=== PATIENT | male | born 1960 | race African-American/Black ===

== ENCOUNTER → 2020-03-08 08:49 | Outpatient (CLI) | payer MEDICARE ==
[2014-09-07 12:26] VITALS: BMI 37.6
[~2020-03-08 08:49] MED LIST: BENICAR20 MG PO; COLACE100 MG PO; ELIQUIS2.5 MG PO; FISH OIL 1,0001 CA1 PO; HYDROCODONE-APA1 TAB PO; MOBIC7.5 MG PO; MS CONTIN30 MG PO; NEXIUM40 MG PO; SENOKOT-S TABLE1 TAB PO; ZYLOPRIM300 MG PO
== END | disposition home or self-care (01) ==
LOC: D.MRI 08:30
PROVIDERS: ATTEND Nurse Practitioner Family
DX: M54.16 Radiculopathy, lumbar region (principal)

== ENCOUNTER 2020-03-16 15:58 | Inpatient (IN) | payer MEDICARE ==
[~2020-03-16] VITALS: Ht 180.3 cm; Wt 143.2 kg
--- NOTE | ~2020-03-16 | OP ---
PATIENT NAME: PHUONG MAE MEDICAL RECORD: [id number] :64 [facility] AD[facility]ION DATE:04/05/20 SURGEON: MILAD HERNANDEZ MD DATE OF OPERATION: 04/05/2020 PREOPERATIVE DIAGNOSIS: Osteoarthritis, left hip. POSTOPERATIVE DIAGNOSIS: Osteoarthritis, left hip. PROCEDURE PERFORMED: Left total hip arthroplasty. INDICATIONS FOR THE PROCEDURE: Mr. Mae is a 59-year-old male with history of left hip pain and arthritis. He has been dealing with this for a while and now it is getting progressively worse. It is limiting his mobility. He has elected to proceed with surgery for left total hip arthroplasty. Risks, benefits, alternatives of surgery were discussed with the patient and consent was obtained. DESCRIPTION OF PROCEDURE: The patient was met in the holding area where his identity and confirmation of procedure was performed. Left lower extremity was marked. He was taken to the operating room where he was placed supine on the operating table. Anesthesia was administered. He was then positioned on the Reeder table. Extremities were positioned and padded appropriately. Left lower extremity was prepped and draped in a sterile fashion. The patient received preoperative antibiotics as well as TXA. A timeout was performed before initiating the case. On initiation of the case, anterior Soto-Bashir approach was utilized for exposure. We incised through the skin and subcutaneous tissues down to the tensor fascia. The tensor fascia was then split longitudinally and the interval between tensor and sartorius/rectus was utilized for deep exposure. We continued our dissection deep to identify the lateral circumflex vessels. These were tagged and cauterized. We dissected down to the anterior hip capsule, placed retractors around the superior and inferior femoral neck. Retractor was also placed over the anterior brim of the acetabulum. Anterior capsule was then excised. Retractors were repositioned around the femoral neck and our femoral neck cut was completed. The femoral head was removed with the corkscrew device. Retractors were repositioned around the acetabulum and tissue from around the acetabulum and the floor of the acetabulum was debrided. Femoral head was very damaged when we removed it and the superior portion of the head even collapsed and was in pieces. Once the acetabulum was completely debrided and exposed, began reaming starting with a size 43 and reaming up sequentially to a size 49. A size 50 mm cup was placed and malleted into position with a good fit. Alignment was confirmed under fluoroscopy. We then placed our central hole cap and the liner was tapped into place. We then turned our attention to the femur. Leg was externally rotated. Hook was placed under the proximal femur. Leg was then taken into extension and adduction. Retractors were placed at the medial calcar and over the greater trochanter. Tissue at the shoulder of the greater trochanter was then debrided as the proximal femur was elevated to allow for full exposure. Once we were pleased with our exposure, we began preparing the proximal femur using cookie cutter followed by the canal finder. We then started with the size 4 broach, going up sequentially to a size [address] a size 12 stem. This was trialed with a neutral head, neck, noted to have good fit and stability with near equal leg lengths. The hip was again dislocated and repositioned. Trial components were then removed and our final components were placed and tapped into position. A size 12 Microplasty Taperloc stem was placed along with a size 36 ceramic OPERATIVE REPORT [id number] PHUONG MAE standard head. The hip was again reduced and images were obtained showed good fit and alignment of the components with near equal leg lengths. The hip has good stability. The wound was irrigated thoroughly with saline. The joint solution was injected around the capsule and the proximal femur. The tensor fascia was then closed with a running Vicryl suture. Subcutaneous tissues were irrigated thoroughly with saline. The remainder of the joint solution was injected. A drain was placed and tissue was then closed over the drain. Subcutaneous tissue was closed with 2-0 Vicryl. The skin was closed with a running 3-0 Monocryl. Prineo and Dermabond dressing was then placed. This was covered with a sterile dressing and this completed our procedure. The patient was turned back over to anesthesia where he was awakened, extubated, and taken to recovery room in stable condition. POSTOPERATIVE PLAN: The patient is going to be admitted to the floor for routine postoperative care. He received 24 hours postop antibiotics. He will be started on DVT prophylaxis tomorrow. Physical therapy will be consulted to assist with mobilization, weightbearing as tolerated on the left lower extremity. PLAN: Home with home health. COMPLICATIONS: None. ANESTHESIA: General. ESTIMATED BLOOD LOSS: 200 mL. TRANSINT:[id number] Voice Confirmation ID: [id number] DOCUMENT ID: [id number] MILAD HERNANDEZ MD CC: [id number] DICTATION DATE: 04/05/20 1321 BIBLE READER: 04/05/20 215 ADM IN [facility] [address] [place] [id number]
[2020-03-22 11:33] LABS: ANION GAP 15.1 mmol/L (8-16); CALCIUM 10.3 mg/dL (8.5-10.1); CARBON DIOXIDE 21.9 mmol/L (21.0-32.0); CREATININE - SERUM 1.1 mg/dL (0.6-1.3)
[2020-03-22 12:12] LABS: APTT 29.6 SECONDS (22.8-39.4)
[2020-03-22 12:13] LABS: INR 0.98 (0.85-1.17)
[2020-03-22 12:15] LABS: BILIRUBIN NEGATIVE (NEGATIVE); GLUCOSE NEGATIVE (NEGATIVE); KETONE NEGATIVE (NEGATIVE); NITRITE NEGATIVE (NEGATIVE); UROBILINOGEN NORMAL (NORMAL)
[2020-03-22 13:14] LABS: BASOPHILS 0.3 % (0-2); EOSINOPHILS 3.3 % (0-7); HEMOGLOBIN 10.6 g/dL (13.5-17.5); IMMATURE GRANULOCYTES 0.3 % (0-5); LYMPHOCYTES 33.6 % (15-50); MCH 27.5 pg (26.0-34.0); MCHC 33.1 g/dL (31.0-37.0); MCV 82.9 fL (80.0-100.0); MEAN PLATELET VOLUME 10.1 fL (7.4-10.4); MONOCYTES 12.1 % (2-11); NEUTROPHILS 50.4 % (40-80); PLATELET COUNT 182 10x3/uL (130-400); RBC 3.86 10x6/uL (4.20-6.10); RDW 18.2 % (11.5-14.5); WBC 3.3 10x3/uL (4.8-10.8)
[2020-04-05] VITALS (11 sets, daily range): BP systolic 92–135; BP diastolic 55–97; Ht 180.3 cm; Wt 143.2 kg
[2020-04-05] MEDS ORDERED: METOLAZONE5 MG PO (07:11)
[2020-04-05] MEDS ORDERED: LEVEMIR IN100 UNITS/ SC (07:12)
[2020-04-05] MEDS ORDERED: MOBIC7.5 MG PO (07:14)
[2020-04-05] MEDS ORDERED: CYMBALTA20 MG PO (07:18)
--- NOTE | 2020-04-05 11:13 | NUR ---
1035-LEFT HIP/LEG WIPED WITH ALCOHOL SOAKED BLUE TOWELS PRIOR TO CHLORAPREP
--- NOTE | 2020-04-05 15:16 | NUR ---
RECIEVED PT FROM PACU. VS WNL, PT STABLE. SPOUSE IN ROOM. EDUCATED PT ON ISP, CL AND NEEDS, VERBALIZED UNDERSTANDING. BED LOW, CL IN REACH. WILL CONTINUE TO MONITOR.
--- NOTE | 2020-04-05 20:00 | NUR ---
RESTING IN BED, REPORTS SOME PAIN WITH MOVEMENT, AT BEDSIDE, SEE SHIFT ASSESSMENT, CALL LIGHT IN REACH
[2020-04-06 05:39] VITALS: BP 94/56
[2020-04-06 07:05] LABS: HEMOGLOBIN 9.9 g/dL (13.5-17.5); MCH 27.7 pg (26.0-34.0); MEAN PLATELET VOLUME 9.4 fL (7.4-10.4); RBC 3.57 10x6/uL (4.20-6.10); RDW 18.3 % (11.5-14.5); WBC 12.4 10x3/uL (4.8-10.8)
--- NOTE | 2020-04-06 07:30 | NUR ---
AWAKE AND ALERT. DENIES NEEDS. NO C/O AT THIS TIME.
[2020-04-06 07:58] VITALS: BP 92/71
--- NOTE | 2020-04-06 08:45 | NUR ---
ATE ALL OF BREAKFAST. TOOK AM MEDS WITHOUT DIFFICULTY. LUNGS ARE CLEAR BILATERALLY, NO COUGH NOTED. REPORTED USING IS INSTRUCTED. SKIN IS INTACT WITHOUT REDNESS EXCEPT INCISION TO LEFT HIP WHICH HAS A DRY INTACT DRESSING IN PLACE. SL TO LEFT WRIST IS PATENT WITHOUT REDNESS AT INSERTION SITE. SLOAN PATENT WITH CLEAR YELLOW URINE. DENIES NEEDS.
--- NOTE | 2020-04-06 09:30 | NUR ---
UP TO CHIAR AT BEDSIDE PER PT. NO C/O PAIN AT THIS TIME.
[2020-04-06 12:00] VITALS: BP 120/68
--- NOTE | 2020-04-06 12:30 | NUR ---
LUNCH SERVED IN ROOM. ATE WELL. AT BEDSIDE. DENIES NEEDS. BACK TO BED PER PT.
--- NOTE | 2020-04-06 14:16 | NUR ---
REQUESTED AND GIVEN ONE HYDROCODONE PO FOR C/O LEFT HIP PAIN LEVEL 9. WILL MONITOR.
[2020-04-06 16:40] VITALS: BP 105/66
--- NOTE | 2020-04-06 18:08 | NUR ---
ATE ALL OF SUPPER TRAY. DENIES NEEDS. NO CHANGES NOTED. VOIDED 300CC CLEAR YELLOW URINE.
[2020-04-06 20:00] VITALS: BP 94/64
--- NOTE | 2020-04-06 20:00 | NUR ---
ALERT RESTING IN BED REQUESTING PAIN MEDICATION, SEE SHIFT ASSESSEMNT, BP LOW INFORMED TO LOW TO GIVE PAIN MEDS AT THIS TIME WILL RECHECK
[2020-04-06 22:30] VITALS: BP 106/53
[2020-04-07 04:00] VITALS: BP 114/79
[2020-04-07 06:41] LABS: HEMATOCRIT 26.8 % (42.0-54.0); HEMOGLOBIN 8.8 g/dL (13.5-17.5); MCH 27.8 pg (26.0-34.0); MCHC 32.8 g/dL (31.0-37.0); MCV 84.8 fL (80.0-100.0); MEAN PLATELET VOLUME 9.4 fL (7.4-10.4); RBC 3.16 10x6/uL (4.20-6.10); RDW 18.4 % (11.5-14.5)
--- NOTE | 2020-04-07 07:30 | NUR ---
AWAKE AND ALERT. IN ROOM. DENIES NEEDS.
[2020-04-07 07:31] VITALS: BP 123/80
--- NOTE | 2020-04-07 08:45 | NUR ---
AWAKE AND ALERT. ORIENTED X3. REQUESTED AND GIVEN ONE HYDROCODONE PO FOR C/O LEFT HIP PAIN LEVEL 8. WILL MONITOR. FSBS 189. GIVEN SCHEDULED LANTUS 20 UNITS. LUNGS ARE CLEAR BILATERALLY, NO COUGH NOTED. SKIN IS INTACT WITHOUT REDNESS EXCEPT INCISION TO LEFT HIP WHICH HAS A DRY INTACT DRESSING IN PLACE. SL TO LEFT WRIST PATENT WITHOUT REDNESS AT INSERTION SITE. DENIES FURTHER NEEDS.
[2020-04-07 11:41] VITALS: BP 104/55
--- NOTE | 2020-04-07 12:30 | NUR ---
LUNCH SERVED IN ROOM. DR. HERNANDEZ HERE. DRESSING CHANGED TO LEFT HIP. REQUESTED AND GIVEN ONE HYDROCODONE FOR C/O LEFT HIP PAIN LEVEL 8. WILL MONITOR.
--- NOTE | 2020-04-07 14:28 | MORECARE ---
CASE MANAGEMENT DISCHARGE SUMMARY PATIENT: PHUONG MAE UNIT: [id number] ADM DATE: 04/05/20 AGE: 59 : 64 SEX: M ROOM/BED: D.1213 AUTHOR: PETER WAYNE PHYSICIAN: REFERRING PHYSICIAN: MILAD HERNANDEZ MD DATE OF SERVICE: 04/07/20 Discharge Plan Patient Name: PHUONG MAE [facility] [facility] 1960 Planned Disposition: Anticipated Discharge Date: Discharge Date: Expected LOS: Initial Reviewer: [email or web address] Initial Review Date: 04/05/2020 Generated: 04/07/20 3:27 pm Comments DCP- Discharge Planning Updated by [email or web address]: Cathy Quiroz on 04/07/20 1:[address] Patient Name: PHUONG MAE Admission Status: Urgent Accout number: [id number] Admission Date: 04-05-2020 : 1960 Admission Diagnosis: Attending: CARYN Current LOS: 2 Anticipated DC Date: Planned Disposition: Primary Insurance: MEDICARE A & B Discharge Planning Comments: CM met with patient to complete initial dc planning assessment. CM educated patient on the CM role and verbal consent given by patient to complete assessment. Patient lives at home with family. Patient is independent. At discharge patient plans to return home and feels this is a safe discharge. CM discussed availability of home health, rehab services, and medical equipment. Patient will have family to transport home. Patient denied known discharge needs at this time. CM will continue to follow and will assist as NEEDED. Patient states does not need HH. Product Safety Technical Assistant: Cathy Quiroz Patient Name: PHUONG MAE Page [phone] at 1428 All edits/amendments must be made on the electronic document DICTATION DATE: 04/07/201426 PIN INSERTER: NICOL 04/07/201426 RPT#: [id number] DC DATE: STATUS: ADM IN [facility] [address] [place] [address] END OF REPORT
--- NOTE | 2020-04-07 14:35 | NUR ---
DISCHARGED TO HOME AMBULATORY WITH . DISCHARGE INSTRUCTIONS GIVEN BOTH VERBALLY AND WRITTEN. ALL QUESTIONS ANSWERED. PATIENT AND VERBALIZED UNDERSTANDING OF SAME. ABLE TO VERBALIZE WHEN TO RETURN TO CLINIC AND HOW TO DO DRESSING CHANGES. SL TO LEFT HAND D/C WITH CATHETER INTACT. ALL BELONGINGS WITH PATIENT.
--- NOTE | 2020-04-07 16:37 | MORECARE ---
CASE MANAGEMENT DISCHARGE SUMMARY PATIENT: PHUONG MAE UNIT: [id number] ADM DATE: 04/05/20 AGE: 59 : 64 SEX: M ROOM/BED: D.1213 AUTHOR: PETER WAYNE PHYSICIAN: REFERRING PHYSICIAN: MILAD HERNANDEZ MD DATE OF SERVICE: 04/07/20 Discharge Plan Patient Name: PHUONG MAE Facility: [facility]:[place] : 1960 Planned Disposition: Anticipated Discharge Date: Discharge Date: 04/07/2020 Expected LOS: Initial Reviewer: [email or web address] Initial Review Date: 04/05/2020 Generated: 04/07/20 5:36 pm Comments DCP- Discharge Planning Updated by [email or web address]: Cathy Quiroz on 04/07/20 3:[address] Patient Name: PHUONG MAE Admission Status: Urgent Accout number: [id number] Admission Date: 04-05-2020 : 1960 Admission Diagnosis: Attending: CARYN Current LOS: 2 Anticipated DC Date: Planned Disposition: Primary Insurance: MEDICARE A & B Discharge Planning Comments: CM met with patient to complete initial dc planning assessment. CM educated patient on the CM role and verbal consent given by patient to complete assessment. Patient lives at home with family. Patient is independent. At discharge patient plans to return home and feels this is a safe discharge. CM discussed availability of home health, rehab services, and medical equipment. Patient will have family to transport home. Patient denied known discharge needs at this time. CM will continue to follow and will assist as NEEDED. Patient states does not need HH. Account Associate: Cathy Quiroz Appended by Cathy Quiroz on 04/07/2020 16:34 CDT: I CALLED AND LEFT PATIENT A MSG TO CALL ME BACK. FROM LOOKING AT THE ORDERS THE MD WANTS HIM TO HAVE HH. I WILL ENCOURAGE THE PATIENT TO CONSENT TO HH. WAITING FOR CALL BACK FROM PATIENT. I WILL TRY CALLING HIM AGAIN FRIDAY IF I DON'T GET A CALL BACK BY THE END OF THE DAY. Last DP export: 04/07/20 1:28 p Patient Name: PHUONG MAE Page 64054 at 1637 All edits/amendments must be made on the electronic document DICTATION DATE: 04/07/201635 CITY MAINTENANCE MANAGER: NICOL 04/07/20 1636 RPT#: [id number] DC DATE:04/07/20 STATUS: DIS IN [facility] [address] [place] [address] END OF REPORT
--- NOTE | 2020-04-07 18:09 | MORECARE ---
CASE MANAGEMENT DISCHARGE SUMMARY PATIENT: PHUONG MAE UNIT: [id number] ADM DATE: 04/05/20 AGE: 59 : 64 SEX: M ROOM/BED: D.1213 AUTHOR: ROSANA,DOC PHYSICIAN: REFERRING PHYSICIAN: MILAD HERNANDEZ MD DATE OF SERVICE: 04/07/20 Discharge Plan Patient Name: PHUONG MAE Facility: [facility]:[place] : 1960 Planned Disposition: Anticipated Discharge Date: Discharge Date: 04/07/2020 Expected LOS: Initial Reviewer: [email or web address] Initial Review Date: 04/05/2020 Generated: 04/07/20 7:08 pm Comments DCP- Discharge Planning Updated by [email or web address]: Cathy Quiroz on 04/07/20 3:[address] Patient Name: PHUONG MAE Admission Status: Urgent Accout number: [id number] Admission Date: 04-05-2020 : 1960 Admission Diagnosis: Attending: CARYN Current LOS: 2 Anticipated DC Date: Planned Disposition: Primary Insurance: MEDICARE A & B Discharge Planning Comments: CM met with patient to complete initial dc planning assessment. CM educated patient on the CM role and verbal consent given by patient to complete assessment. Patient lives at home with family. Patient is independent. At discharge patient plans to return home and feels this is a safe discharge. CM discussed availability of home health, rehab services, and medical equipment. Patient will have family to transport home. Patient denied known discharge needs at this time. CM will continue to follow and will assist as NEEDED. Patient states does not need HH. Cook Helper Vegetable: Cathy Quiroz Appended by Cathy Quiroz on 04/07/2020 16:34 CDT: I CALLED AND LEFT PATIENT A MSG TO CALL ME BACK. FROM LOOKING AT THE ORDERS THE MD WANTS HIM TO HAVE HH. I WILL ENCOURAGE THE PATIENT TO CONSENT TO HH. WAITING FOR CALL BACK FROM PATIENT. I WILL TRY CALLING HIM AGAIN FRIDAY IF I DON'T GET A CALL BACK BY THE END OF THE DAY. External Providers [facility] Next Contact Date: Service Request Date: Service Type: Resolution: Reviewer: Comments: Last DP export: 04/07/20 3:37 p Patient Name: PHUONG MAE Page 16202 at 1809 All edits/amendments must be made on the electronic document DICTATION DATE: 04/07/201808 FRONT END JAVA DEVELOPER: NICOL 04/07/201808 RPT#: [id number] DC DATE:04/07/20 STATUS: DIS IN [facility] [address] [place] [address] END OF REPORT
== END 2020-04-07 14:46 | disposition home or self-care (01) | DRG 470 ==
LOC: D.SDCHOLD 03-22 10:00 → D.M3 04-05 06:28 → D.SDCHOLD 04-05 06:28 → D.M3 04-05 13:48
PROVIDERS: ADMIT Orthopaedic Surgery; ATTEND Orthopaedic Surgery
PROC: 0SRB0JZ Replacement of Left Hip Joint with Synthetic Substitute, Open Approach (ICD-10-PCS; principal; 2020-04-05 08:45)
DX: M16.12 Unilateral primary osteoarthritis, left hip (principal); E11.9 Type 2 diabetes mellitus without complications; I10 Essential (primary) hypertension; F17.200 Nicotine dependence, unspecified, uncomplicated

== ENCOUNTER → 2020-04-28 18:15 | Outpatient (CLI) | payer MEDICARE ==
[2020-04-05 15:37] VITALS: BMI 44.0
[~2020-04-28 18:15] MED LIST changes: +CYMBALTA20 MG PO; +ELIQUIS2.5 MG; +LEVEMIR IN100 UNITS/ SC; +METOLAZONE5 MG PO
[2020-04-28 19:12] LABS: BASOPHILS 0.2 % (0-2); EOSINOPHILS 2.3 % (0-7); HEMATOCRIT 30.5 % (42.0-54.0); HEMOGLOBIN 9.8 g/dL (13.5-17.5); IMMATURE GRANULOCYTES 0.3 % (0-5); LYMPHOCYTES 24.5 % (15-50); MCH 27.6 pg (26.0-34.0); MCHC 32.1 g/dL (31.0-37.0); MCV 85.9 fL (80.0-100.0); MEAN PLATELET VOLUME 9.2 fL (7.4-10.4); MONOCYTES 7.9 % (2-11); NEUTROPHILS 64.8 % (40-80); RBC 3.55 10x6/uL (4.20-6.10); RDW 17.5 % (11.5-14.5); WBC 9.8 10x3/uL (4.8-10.8)
[2020-04-28 19:33] LABS: PLATELET COUNT 591 10x3/uL (130-400)
[2020-04-28 20:33] LABS: ERYTHROCYTE SEDIMENTATION RATE 96 mm/hr (0-20)
== END | disposition home or self-care (01) ==
LOC: D.LABREF 18:15
PROVIDERS: ATTEND Orthopaedic Surgery
DX: M25.552 Pain in left hip (principal)

== ENCOUNTER 2020-05-03 06:44 | Inpatient (IN) | payer MEDICARE ==
[~2020-05-03] VITALS: Ht 180.3 cm; Wt 136.1 kg
[2020-05-03] VITALS (7 sets, daily range): BP systolic 110–134; BP diastolic 58–88; BMI 41.9
--- NOTE | ~2020-05-03 | HEMODYNAMI ---
PATIENT:PHUONG MAE MEDICAL RECORD: [id number] : 64 LOCATION:D.[facility] D.2227 ADMISSION DATE: 05/03/20 Generatedon:05/12/20208:43 Patient name: PHUONG MAE Patient #: [id number] SSN: : 1960 Date of study: 05/12/2020 Page: Of Hemodynamic Procedure Report Patient Data Patient Demographics Procedure consent was obtained First Name: PHUONG Gender: Male Last Name: TU : 1960 Patient #: [id number] Age: 59 year(s) Race: Black Additional ID: [id number] Contact details Address: [address] [place] [address] State: [place] City: [place] Zip code: [address] Past Medical History Allergies Allergen Reaction Date Comments Reported Other allergy 05/12/2020 ibuprofen Admission Admission Data Admission Date: 05/03/2020 Admission Time: 17:33 Room #: D.2227 Procedure Procedure Types Cath Procedure Peripheral Cath Diagnostic Procedure PICC PICC Line Placement Procedure Description Procedure Date Procedure Date: 05/12/2020 Procedure Start Time: 8:24 Procedure End Time: 8:43 Procedure Staff Name Function Thuan Huang MD Performing Physician HERNANDEZ WOODY RT Monitor Enrrique Pelayo RT Scrub Keon BAHENA RN Nurse Procedure Data Cath Procedure Fluoroscopy Diagnostic fluoroscopy Total fluoroscopy Time: 0.8 time: 0.8 min min Hemodynamics Rest Pre Cath Intra NCS Post Cath Procedure Log Time Note 8:03:36 Keon BAHENA RN sent for patient. Start room use. 8:03:39 Time tracking: Regular hours (M-F 7:00 - 5:00) 8:03:47 Patient received from Med/Surg to IR Alert and oriented. Tansferred to table in Supine position. 8:03:54 Signed procedure consent form obtained from patient. 8:03:55 Warm blankets applied, and kayden hugger turned on for patient comfort. 8:03:56 Correct patient and procedure confirmed by team. 8:03:58 8:04:03 H&P Date Dictated: 05/12/2020 Within 30 days and on chart.. 8:04:05 Pre-procedure instructions explained to patient. 8:04:06 Pre-op teaching completed and patient verbalized understanding. 8:04:23 Patient allergic to Other allergyibuprofen 8:06:55 8:07:05 PowerPICC 5Fr double lumen catheter opened to sterile field. 8:12:30 Use device set IR Diagnostic 8:12:31 Bag Decanter (2002S) opened to sterile field. 8:12:32 Sterile Angiographic Pack opened to sterile field. 8:12:32 Tegaderm 4 x 4 ([id number]) opened to sterile field. 8:12:51 Left Arm area was prepped with chlora-prep and draped in sterile fashion 8:20:49 --------ALL STOP TIME OUT------ 8:20:50 Final Timeout: patient, procedure, and site verified with staff and physician. All members of the team are in agreement. 8:21:02 Sharps counted by scrub and verified by R.N. 8:22:30 Procedure started. 8:22:30 Full Disclosure recording started 8:24:53 Local anesthetic to left subclavian vein with Lidocaine 1% by Thuan Huang MD.INITIAL ACCESS ONLY 8:24:56 Venous access obtained using ultrasound guidance. 8:35:18 NITINOL .014 300cm wire ([id number]) opened to sterile field. 8:41:46 PICC line was trimmed to 53cm and advanced to the superior vena cava.Position verified under fluoroscopy. 8:41:53 Procedure ended.(Physican Out) 8:42:12 Fluoroscopy time 00.80 minutes. 8:42:14 Dose Area Product 6 mGy/cm. 8:42:16 Sharps counted by scrub and verified by R.N. 8:42:40 Post left brachial artery:stable, clean and dry 8:42:44 Procedure and supply charges have been captured, reviewed, submitted and are correct. 8:43:17 Procedure ended. 8:43:17 Full Disclosure recording stopped Device Usage Item Name Manufacture Quantity Catalog Hospital Part Current Minimal Lot# / Number Charge Number Stock Stock Serial# Code PowerPIC Bard 1 [id number] [id number] 5 5Fr double lumen catheter Bag Decanter Microtek 1 2001S [id number] [id number] [id number] 5 (2001S) Medical Inc[employer] Sterile Cardinal 1 [id number] 5 Angiographic Health Pack Tegaderm 4 x 3M 1 1626W 029113 [id number] [id number] 5 4 (1626W) NITINOL .014 Medtronic 1 [id number] 5 300cm wire ([id number]) Signature Audit Yaphank Stage Time Signature Unsigned Intra-Procedure 05/12/2020 HERNANDEZ WOODY RT 8:43:34 AM (R) [facility] [address] [place] [address]
[2020-05-03 07:20] LABS: HEMATOCRIT 30.4 % (42.0-54.0); HEMOGLOBIN 9.8 g/dL (13.5-17.5); MCH 27.5 pg (26.0-34.0); MCHC 32.2 g/dL (31.0-37.0); MCV 85.2 fL (80.0-100.0); MEAN PLATELET VOLUME 8.5 fL (7.4-10.4); RBC 3.57 10x6/uL (4.20-6.10); RDW 16.8 % (11.5-14.5); WBC 5.9 10x3/uL (4.8-10.8)
[2020-05-03 07:29] LABS: ALBUMIN 3.1 g/dL (3.4-5.0); ANION GAP 14.3 mmol/L (8-16); APTT 31.6 SECONDS (22.8-39.4); BILIRUBIN - TOTAL 0.25 mg/dL (0.2-1.3); CALCIUM 9.5 mg/dL (8.5-10.1); CARBON DIOXIDE 23.8 mmol/L (21.0-32.0); CREATININE - SERUM 1.2 mg/dL (0.6-1.3); INR 1.06 (0.85-1.17); POTASSIUM - SERUM 4.1 mmol/L (3.5-5.1); PROTEIN - SERUM 8.8 g/dL (6.4-8.2); PROTIME 13.8 SECONDS (11.6-15.0)
--- NOTE | 2020-05-03 13:23 | NUR ---
REPORT RECIEVED FROM RECOVERY ROOM NURSE AT THIS TIME.
--- NOTE | 2020-05-03 14:12 | NUR ---
PATIENT TO UNIT VIA BED, AT BEDSIDE. REQUESTS PAIN MEDICATION. BED LOW POSITION, CALL LIGHT IN REACH, URINAL IN REACH. POST OP VITAL SIGNS EVERY 15 MINUTES PER PROTOCOL.
[2020-05-04 04:00] VITALS: BP 152/100
--- NOTE | 2020-05-04 05:01 | NUR ---
I have reviewed this patient and I concur with the Shift Assessment completed by the Licensed Practical Nurse today this shift.
[2020-05-04 06:59] LABS: BASOPHILS 0.3 % (0-2); EOSINOPHILS 2.8 % (0-7); HEMATOCRIT 25.9 % (42.0-54.0); HEMOGLOBIN 8.5 g/dL (13.5-17.5); IMMATURE GRANULOCYTES 0.4 % (0-5); LYMPHOCYTES 28.5 % (15-50); MCHC 32.8 g/dL (31.0-37.0); MCV 85.2 fL (80.0-100.0); MEAN PLATELET VOLUME 8.9 fL (7.4-10.4); PLATELET COUNT 448 10x3/uL (130-400); RBC 3.04 10x6/uL (4.20-6.10); RDW 16.9 % (11.5-14.5); WBC 6.7 10x3/uL (4.8-10.8)
--- NOTE | 2020-05-04 07:15 | NUR ---
RECEIVED BEDSIDE REPORT. PT SITTING UP IN BED, A&O X4. DENIES PAIN. PIV IN RIGHT HAND, PATENT AND INFUSING, NO REDNESS OR SWELLING. WOUND VAC TO LEFT HIP, PATENT AND DRAINING. PT ABLE TO AMBULATE WITH ONE PERSON ASSIST, USES URINAL AT BEDSIDE. EDUCATED PT ON CL AND NEEDS. BED LOW, RAILS X2. CL IN REACH. WILL CONTINUE TO MONITOR.
[2020-05-04 07:43] LABS: ALBUMIN 2.6 g/dL (3.4-5.0); ALKALINE PHOSPHATASE 188 U/L (30-120); ALT (SGPT) 17 U/L (10-68); BILIRUBIN - TOTAL 0.26 mg/dL (0.2-1.3); CALC OSMOLALITY 271 mosm/kg (275-300); CALCIUM 8.3 mg/dL (8.5-10.1); CARBON DIOXIDE 23.6 mmol/L (21.0-32.0); CHLORIDE - SERUM 102 mmol/L (98-107); GLUCOSE 123 mg/dL (74-106); MAGNESIUM - SERUM 1.6 mg/dL (1.8-2.4); POTASSIUM - SERUM 4.2 mmol/L (3.5-5.1); PROTEIN - SERUM 6.8 g/dL (6.4-8.2); SODIUM 135 mmol/L (136-145); UREA NITROGEN 15 mg/dL (7-18)
[2020-05-04 07:46] LABS: CREATININE - SERUM 0.8 mg/dL (0.6-1.3); eGFR NON AFRICAN AMERICAN > 90 mL/min (90-120)
[2020-05-04 08:00] VITALS: BP 135/95
[2020-05-04 09:48] VITALS: BP 135/95
--- NOTE | 2020-05-04 10:30 | NUR ---
PT C/O PAIN 04/03, PROVIDED MEDS PER ORDER. EMPTIED URINAL, 200 ML URINE CLR AND YELLOW, ODORLESS. WILL CONTINUE TO MONITOR.
[2020-05-04 12:00] VITALS: BP 138/85
[2020-05-04 13:57] VITALS: Ht 180.3 cm; Wt 136.1 kg
--- NOTE | 2020-05-04 14:30 | NUR ---
PT C/O PAIN 04/03, PROVIDED MEDS PER ORDER. WILL CONTINUE TO MONITOR.
[2020-05-04 17:14] VITALS: BP 124/92
--- NOTE | 2020-05-04 19:30 | NUR ---
PT SITTING UP IN BED WITHOUT DISTRESS, AOX4. IV RIGHT HAND INFUSING NS @ KVO. LEFT HIP WOUND VAC IN PLACE. REQUESTED AND GIVEN NORCO FOR PAIN. DENIES OTHER NEEDS AT THIS TIME. CL IN REACH, WILL CTM
[2020-05-04 20:00] VITALS: BP 136/83
[2020-05-05] VITALS: BP 152/99
[2020-05-05 04:00] VITALS: BP 140/93
[2020-05-05 05:11] LABS: BASOPHILS 0.3 % (0-2); EOSINOPHILS 4.1 % (0-7); HEMATOCRIT 28.5 % (42.0-54.0); HEMOGLOBIN 9.4 g/dL (13.5-17.5); IMMATURE GRANULOCYTES 0.4 % (0-5); LYMPHOCYTES 27.9 % (15-50); MCH 27.8 pg (26.0-34.0); MCV 84.3 fL (80.0-100.0); MEAN PLATELET VOLUME 9.4 fL (7.4-10.4); MONOCYTES 9.3 % (2-11); PLATELET COUNT 371 10x3/uL (130-400); RBC 3.38 10x6/uL (4.20-6.10); RDW 16.8 % (11.5-14.5); WBC 7.5 10x3/uL (4.8-10.8)
[2020-05-05 05:16] LABS: ALBUMIN 2.8 g/dL (3.4-5.0); ALKALINE PHOSPHATASE 208 U/L (30-120); ALT (SGPT) 15 U/L (10-68); BILIRUBIN - TOTAL 0.39 mg/dL (0.2-1.3); C-REACTIVE PROTEIN 5.5 mg/dL (0.0-0.9); CALC OSMOLALITY 269 mosm/kg (275-300); CALCIUM 9.4 mg/dL (8.5-10.1); CARBON DIOXIDE 23.9 mmol/L (21.0-32.0); CHLORIDE - SERUM 101 mmol/L (98-107); CREATININE - SERUM 0.9 mg/dL (0.6-1.3); GLUCOSE 119 mg/dL (74-106); MAGNESIUM - SERUM 1.6 mg/dL (1.8-2.4); POTASSIUM - SERUM 4.6 mmol/L (3.5-5.1); PROTEIN - SERUM 8.2 g/dL (6.4-8.2); SODIUM 135 mmol/L (136-145); UREA NITROGEN 11 mg/dL (7-18); eGFR NON AFRICAN AMERICAN > 90 mL/min (90-120)
--- NOTE | 2020-05-05 08:21 | NUR ---
The patient is awake and in good spirits, wound vac dressing intact. Patient aware of procedures today.
[2020-05-05 09:24] VITALS: BP 134/99
--- NOTE | 2020-05-05 12:24 | NUR ---
1224 TRANSPORTED TO OR VIA BED WITH OR STAFF TO ASSIST.
[2020-05-05 15:07] VITALS: BP 122/89
--- NOTE | 2020-05-05 15:15 | NUR ---
The patient is back in his room from surgery. The procedure was to open his wound and replace his wound vac, the patient will schedule for a closure on Friday.
--- NOTE | 2020-05-05 15:24 | NUR ---
The patient requests a pain medication, he says he has a h/a 06/03. Will continue to monitor.
--- NOTE | 2020-05-05 15:24 | NUR ---
Provided the patient Doug martinez, see MAR. daughter and spouse at the bedside.
--- NOTE | 2020-05-05 16:00 | NUR ---
BP 132/910, R 20, T 98, O2SAT R/A 98
--- NOTE | 2020-05-05 16:30 | NUR ---
BP 136/73, P 79, O2SAT R/A 99, R 18
--- NOTE | 2020-05-05 20:00 | NUR ---
PATIENT RESTING IN BED WATCHING TV. NO S/S OF ACUTE DISTRESS. NO C/O AT THIS TIME. PATIENT HAS RIGHT HAND IV, NORMAL SALINE @ 50 ML/HR. IV IS PATENT WITHOUT REDNESS, SWELLING, OR TENDERNESS. PATEINT HAS WOUND VAC TO THE LEFT HIP, DRESSING C/D/I. PATIENT USES URINAL TO USE THE BATHROOM. CALL LIGHT WITHIN REACH. WILL CONTINUE TO MONITOR.
[2020-05-05 20:10] VITALS: BP 118/78
[2020-05-06] VITALS: BP 113/82
--- NOTE | 2020-05-06 02:25 | NUR ---
I have reviewed this patient and I concur with the Shift Assessment completed by the Licensed Practical Nurse today this shift.
--- NOTE | 2020-05-06 03:40 | NUR ---
RE-SITED IV TO RIGHT WRIST USING 22 GUAGE CATHETER IN ONE STICK. IV FLUIDS RE-STARTED.
[2020-05-06 04:00] VITALS: BP 135/77
--- NOTE | 2020-05-06 04:15 | NUR ---
IV IN RIGHT HAND INFILTRATED. IV TAKEN OUT AND CATHETER TIP IS INTACT. NEW IV PLACED IN RIGHT HAND. IV IS PATENT WITHOUT REDNESS, SWELLING, OR TENDERNESS. CALL LIGHT WITHIN REACH. WILL CONTINUE TO MONITOR.
[2020-05-06 06:35] LABS: BASOPHILS 0.2 % (0-2); EOSINOPHILS 2.3 % (0-7); HEMOGLOBIN 9.3 g/dL (13.5-17.5); IMMATURE GRANULOCYTES 0.2 % (0-5); LYMPHOCYTES 26.6 % (15-50); MCH 26.9 pg (26.0-34.0); MCHC 32.1 g/dL (31.0-37.0); MCV 83.8 fL (80.0-100.0); MEAN PLATELET VOLUME 9.4 fL (7.4-10.4); MONOCYTES 8.7 % (2-11); RBC 3.46 10x6/uL (4.20-6.10); RDW 16.7 % (11.5-14.5); WBC 8.2 10x3/uL (4.8-10.8)
[2020-05-06 06:41] LABS: PLATELET COUNT 453 10x3/uL (130-400)
[2020-05-06 07:16] LABS: ALBUMIN 2.6 g/dL (3.4-5.0); ALKALINE PHOSPHATASE 197 U/L (30-120); ALT (SGPT) 14 U/L (10-68); BILIRUBIN - TOTAL 0.32 mg/dL (0.2-1.3); CALC OSMOLALITY 268 mosm/kg (275-300); CALCIUM 9.2 mg/dL (8.5-10.1); CARBON DIOXIDE 22.9 mmol/L (21.0-32.0); CHLORIDE - SERUM 97 mmol/L (98-107); CREATININE - SERUM 0.9 mg/dL (0.6-1.3); GLUCOSE 152 mg/dL (74-106); MAGNESIUM - SERUM 1.5 mg/dL (1.8-2.4); PROTEIN - SERUM 8.1 g/dL (6.4-8.2); SODIUM 133 mmol/L (136-145); UREA NITROGEN 13 mg/dL (7-18); eGFR NON AFRICAN AMERICAN > 90 mL/min (90-120)
[2020-05-06 07:19] LABS: POTASSIUM - SERUM 3.9 mmol/L (3.5-5.1)
[2020-05-06 09:54] VITALS: BP 132/77
--- NOTE | 2020-05-06 10:57 | NUR ---
PT ALERT X 4. BREATH SOUNDS CLEAR BILAT. IV TO RIGHT HAND, PATENT, DRESSING CDI. WOUND VAC TO LEFT HIP CDI. PT REPORTING PAIN OF 7/10, MEDICATED PER ORDERS, WILL CONTINUE TO MONITOR. BED LOW, CALL LIGHT IN REACH. NO OTHER NEEDS AT THIS TIME.
[2020-05-06 12:43] VITALS: BP 120/84
[2020-05-06 16:00] VITALS: BP 87/53
--- NOTE | 2020-05-06 19:00 | NUR ---
BEDSIDE REPORT RECEIVED ANND CARE OF PT ASSUMED. PT LYING IN MID MARKS'S POSITION WATCHING TV. IV TO RIGHT HAND SALINE LOCKED. WOUND VAC LEFT HIP WELL COMPRESSED WITH NO LEAKAGE ALARMS. WILL MONITOR FOR NEEDS.
--- NOTE | 2020-05-06 19:56 | NUR ---
HS MEDICATIONS GIVEN TO INCLUDE NORCO PO PER REQUEST FOR PAIN. WILL MONITOR FOR EFFECTIVENESS.
[2020-05-06 20:00] VITALS: BP 101/71
[2020-05-07 04:00] VITALS: BP 121/66
[2020-05-07 06:28] LABS: BASOPHILS 0.2 % (0-2); EOSINOPHILS 3.7 % (0-7); HEMATOCRIT 29.8 % (42.0-54.0); HEMOGLOBIN 9.5 g/dL (13.5-17.5); IMMATURE GRANULOCYTES 0.5 % (0-5); MCH 26.6 pg (26.0-34.0); MCHC 31.9 g/dL (31.0-37.0); MCV 83.5 fL (80.0-100.0); MEAN PLATELET VOLUME 9.1 fL (7.4-10.4); MONOCYTES 9.6 % (2-11); PLATELET COUNT 495 10x3/uL (130-400); RBC 3.57 10x6/uL (4.20-6.10); RDW 16.5 % (11.5-14.5); WBC 8.9 10x3/uL (4.8-10.8)
[2020-05-07 07:10] LABS: ALBUMIN 2.8 g/dL (3.4-5.0); ANION GAP 13.1 mmol/L (8-16); BILIRUBIN - TOTAL 0.3 mg/dL (0.2-1.3); CALCIUM 9.6 mg/dL (8.5-10.1); CARBON DIOXIDE 25.6 mmol/L (21.0-32.0); CREATININE - SERUM 1.1 mg/dL (0.6-1.3); MAGNESIUM - SERUM 1.8 mg/dL (1.8-2.4); POTASSIUM - SERUM 3.7 mmol/L (3.5-5.1); PROTEIN - SERUM 8.6 g/dL (6.4-8.2)
--- NOTE | 2020-05-07 07:12 | NUR ---
ALERT AND ORIENTED. LUNGS CLEAR BILATERALLY. HEART SOUNDS S1 AND S2 HEARD IN ALL JEFF[place]. BOWEL SOUNDS ACTIVE X 4. IV TO RIGHT HAND PATENT WITHOUT REDESS. DENIESS NEEDS. BED LOW. CALL ACO AND PERSONAL ITEMS IN REACH. WILL CONTINUE TO MONITOR.
[2020-05-07 08:46] VITALS: BP 125/79
--- NOTE | 2020-05-07 10:32 | NUR ---
RESTING IN BED. DENIES NEEDS. WILL CONTINUE TO MONITOR.
--- NOTE | 2020-05-07 11:38 | NUR ---
IV INFILTRATED TO RIGHT HAND. REMOVED WITH TIP INTACT. WILL ATTEMPT TO RESITE.
[2020-05-07 12:44] VITALS: BP 97/66
--- NOTE | 2020-05-07 13:47 | NUR ---
IV SITED TO LEFT WRIST AFTER ONE ATTEMPT WITH 22 GAUGE.
[2020-05-07 16:42] VITALS: BP 96/62
--- NOTE | 2020-05-07 18:24 | NUR ---
RESTING IN BED. DENIES NEEDS. WILL CONTINUE TO MONITOR.
--- NOTE | 2020-05-07 19:00 | NUR ---
BEDSIDE REPORT RECEIVED AND CARE OF PT ASSUMED. PT LYING IN LOW MARKS'S POSITION TALKING ON THE PHONE. IV TO LEFT WRIST PATENT WITH NS INFUSING AT KVO. WOUND VAC ON LEFT HIP PATENT...WELL COMPRESSED WITH NO LEAKAGE ALARMS. WILL MONITOR FOR NEEDS.
[2020-05-07 20:00] VITALS: BP 88/58
--- NOTE | 2020-05-07 20:30 | NUR ---
PT CONSENTED FOR AM PROCEDURE. DISCUSSED NPO STATUS AFTER MIDNIGHT.
--- NOTE | 2020-05-07 20:30 | NUR ---
HS MEDICATIONS GIVEN TO INCLUDE NORCO PO PER REQUEST FOR PAIN, PER PRN ORDER. WILL MONITOR FOR EFFECTIVENESS.
[2020-05-08] VITALS: BP 96/64
[2020-05-08 04:00] VITALS: BP 94/62
--- NOTE | 2020-05-08 05:15 | NUR ---
HIBACLENS BATH PERFORMED AND ALL LINENS AND GOWN CHANGED.
[2020-05-08 06:04] LABS: BASOPHILS 0.3 % (0-2); EOSINOPHILS 4.4 % (0-7); HEMATOCRIT 27.3 % (42.0-54.0); HEMOGLOBIN 8.8 g/dL (13.5-17.5); IMMATURE GRANULOCYTES 0.4 % (0-5); LYMPHOCYTES 38.1 % (15-50); MCH 27.1 pg (26.0-34.0); MCHC 32.2 g/dL (31.0-37.0); MEAN PLATELET VOLUME 8.9 fL (7.4-10.4); NEUTROPHILS 47.8 % (40-80); PLATELET COUNT 475 10x3/uL (130-400); RBC 3.25 10x6/uL (4.20-6.10); RDW 16.3 % (11.5-14.5); WBC 7.3 10x3/uL (4.8-10.8)
[2020-05-08 06:30] LABS: ALBUMIN 2.6 g/dL (3.4-5.0); ANION GAP 11.5 mmol/L (8-16); BILIRUBIN - TOTAL 0.26 mg/dL (0.2-1.3); C-REACTIVE PROTEIN 5.8 mg/dL (0.0-0.9); CALCIUM 8.7 mg/dL (8.5-10.1); CARBON DIOXIDE 26.8 mmol/L (21.0-32.0); CREATININE - SERUM 1.3 mg/dL (0.6-1.3); MAGNESIUM - SERUM 1.5 mg/dL (1.8-2.4); PROTEIN - SERUM 7.1 g/dL (6.4-8.2)
[2020-05-08 06:32] LABS: POTASSIUM - SERUM 4.3 mmol/L (3.5-5.1)
[2020-05-08 09:11] VITALS: BP 98/59
[2020-05-08 12:41] VITALS: BP 104/52
[2020-05-08 19:07] VITALS: BP 113/72
[2020-05-08 20:00] VITALS: BP 113/72
[2020-05-09] VITALS: BP 110/71
[2020-05-09 04:00] VITALS: BP 104/63
--- NOTE | 2020-05-09 04:28 | NUR ---
I have reviewed this patient and I concur with the Shift Assessment completed by the Licensed Practical Nurse today this shift.
[2020-05-09 06:01] LABS: CREATININE - SERUM 1.5 mg/dL (0.6-1.3); VANCOMYCIN - RANDOM 16.7 ug/mL (10.0-20.0)
--- NOTE | 2020-05-09 08:30 | NUR ---
PT QUESTIONED WHETHER OR NOT HE WILL POSSIBLY GO HOME WITH A WOUND VAC. I STATED THAT IT WAS POSSIBLE BUT IT WOULD BE A SMALLER MORE PORTABLE WOUND VAC. QUESTIONED WHETHER OR NOT A PAIN PILL WAS AVAILABLE. I TOLD HIM AROUND 1100. NO FURTHER NEEDS AT THIS TIME. EDGARD
[2020-05-09 09:46] VITALS: BP 96/79
--- NOTE | 2020-05-09 10:40 | NUR ---
PT UP IN CHAIR. CL IN REACH. NO NEEDS AT THIS TIME. FRIEND IN ROOM. WCTM
[2020-05-09 12:41] VITALS: BP 96/60
--- NOTE | 2020-05-09 14:03 | NUR ---
IV THERAPY DC'ED FROM LEFT FOREARM WITH TIP INTACT. CL IN REACH. NO FURTHER NEEDS AT THIS TIME. WCMT
--- NOTE | 2020-05-09 14:22 | NUR ---
Nutrition Follow-up: POD1 total hip revision Diet: Diabetic PO intake: 75-100% x all meals Last BM: 05/04/20. Wt: 300# (05/04/20) Meds noted: vanc, probiotic, lantus. Labs noted: POC Glu 215(H) Skin: wound vac to left hip Recommend continue current diet. RD following.
[2020-05-09 14:28] LABS: ALBUMIN 2.7 g/dL (3.4-5.0); ANION GAP 10.3 mmol/L (8-16); BILIRUBIN - TOTAL 0.2 mg/dL (0.2-1.3); CALCIUM 8.6 mg/dL (8.5-10.1); CARBON DIOXIDE 25.4 mmol/L (21.0-32.0); CREATININE - SERUM 1.5 mg/dL (0.6-1.3); POTASSIUM - SERUM 4.7 mmol/L (3.5-5.1)
[2020-05-09 14:32] LABS: BASOPHILS 0.2 % (0-2); EOSINOPHILS 2.4 % (0-7); HEMOGLOBIN 8.5 g/dL (13.5-17.5); IMMATURE GRANULOCYTES 0.4 % (0-5); LYMPHOCYTES 26.4 % (15-50); MCH 27.4 pg (26.0-34.0); MCHC 32.7 g/dL (31.0-37.0); MCV 83.9 fL (80.0-100.0); MEAN PLATELET VOLUME 9.3 fL (7.4-10.4); MONOCYTES 9.8 % (2-11); NEUTROPHILS 60.8 % (40-80); PLATELET COUNT 462 10x3/uL (130-400); RDW 16.4 % (11.5-14.5)
--- NOTE | 2020-05-09 14:32 | MORECARE ---
CASE MANAGEMENT DISCHARGE SUMMARY PATIENT: PHUONG MAE UNIT: [id number] ADM DATE: 05/03/20 AGE: 59 : 64 SEX: M ROOM/BED: D.2227 AUTHOR: PETER WAYNE PHYSICIAN: REFERRING PHYSICIAN: MILAD HERNANDEZ MD DATE OF SERVICE: 05/09/20 Discharge Plan Patient Name: [facility]UONG [facility] [facility] 1960 Planned Disposition: Home with Home Health and Infusion Serv Anticipated Discharge Date: Discharge Date: Expected LOS: Initial Reviewer: [email or web address] Initial Review Date: 05/09/2020 Generated: 05/09/20 3:31 pm DCPIA - Discharge Planning Initial Assessment Updated by [email or web address]: Cathy Quiroz on 05/09/20 2:25 pm * Is the patient Alert and Oriented? Yes * PCP LISSY * Pharmacy [facility] * Preadmission Environment Home with Family * ADLs Independent * Other Equipment WALKER * Community resources currently utilized Home Health * Please name any agencies selected above. [facility] * Additional services required to return to the preadmission environment? Yes * Can the patient safely return to the preadmission environment? Yes * Has this patient been hospitalized within the prior 30 days at any hospital? Yes Patient Name: PHUONG MAE Page 05764 at 1432 All edits/amendments must be made on the electronic document DICTATION DATE: 05/09/20 1432 PLASTIC EXTRUSION OPERATOR: NICOL 05/09/20 1432 RPT#: [id number] DC DATE: STATUS: ADM IN [facility] [address] [place] [address] END OF REPORT
--- NOTE | 2020-05-09 14:40 | MORECARE ---
CASE MANAGEMENT DISCHARGE SUMMARY PATIENT: PHUONG MAE UNIT: [id number] ADM DATE: 05/03/20 AGE: 59 : 64 SEX: M ROOM/BED: D.2227 AUTHOR: ROSANA,DOC PHYSICIAN: REFERRING PHYSICIAN: MILAD HERNANDEZ MD DATE OF SERVICE: 05/09/20 Discharge Plan Patient Name: PHUONG MAE Facility: [facility]:[place] : 1960 Planned Disposition: Home with Home Health and Infusion Serv Anticipated Discharge Date: Discharge Date: Expected LOS: Initial Reviewer: [email or web address] Initial Review Date: 05/09/2020 Generated: 05/09/20 3:39 pm Comments DCP- Discharge Planning Updated by [email or web address]: Cathy Quirzo on 05/09/20 1:[address] Patient Name: PHUONG MAE Admission Status: Elective Accout number: [id number] Admission Date: 05-03-2020 : 1960 Admission Diagnosis:INFECT/INFLM REACTION DUE TO INTERNAL LEFT HIP PROSTH, Attending: CARYN Current LOS: 6 Anticipated DC Date: Planned Disposition: Home with Home Health and Infusion Serv Primary Insurance: MEDICARE A & B Discharge Planning Comments: CM met with patient at bedside after explaining CM role and obtaining verbal consent. CM discussed availability / needs of home health, REHAB and medical equipment. PATIENT WOULD LIKE TO RESUME HH WITH [facility] AND USE [facility] FOR IV [facility]USIONS. [facility]. BILL SIGNED. ANTICIPATE DC FOR FRIDAY. PATIENT ALSO HAS A WOUND VAC ON. CM TO FOLLOW AND ASSIST. Landscape Laborer: Cathy Quiroz DCPIA - Discharge Planning Initial Assessment Updated by [email or web address]: Cathy Quiroz on 05/09/20 2:25 pm * Is the patient Alert and Oriented? Yes * PCP LISSY * Pharmacy [facility] * Preadmission Environment Home with Family * ADLs Independent * Other Equipment WALKER * Community resources currently utilized Home Health * Please name any agencies selected above. [facility] * Additional services required to return to the preadmission environment? Yes * Can the patient safely return to the preadmission environment? Yes * Has this patient been hospitalized within the prior 30 days at any hospital? Yes External Providers [facility] Next Contact Date: Service Request Date: Service Type: Resolution: Reviewer: Comments: External Provider: [facility] Next Contact Date: Service Request Date: Service Type: Resolution: Reviewer: Comments: External Provider: [facility] Next Contact Date: Service Request Date: Service Type: Resolution: Reviewer: Comments: Coverage Notice Reviewer: [email or web address] Mary Quiroz Notice Issued Date-Time: 05/09/2020 14:38 Notice Type: Patient Choice Letter Notice Delivered To: Relationship to Patient: Human Resources Designate Name: Delivery Method: HAND - Hand Delivered Rani Days: Prior Verbal Notification: Recipient Understood Notice: Yes Recipient Signature: Yes Med Rec Note Co-signed by Attending: Coverage Notice Comment: [facility]ME [facility], [facility], [facility] Last DP export: 05/09/20 1:32 p Patient Name: PHUONG MAE Page 01971 at 1440 All edits/amendments must be made on the electronic document DICTATION DATE: 05/09/20 143 CHINCHILLA MACHINE OPERATOR: NICOL 05/09/20 1439 RPT#: [id number] DC DATE: STATUS: ADM IN [facility] [address] [place] [address] END OF REPORT
--- NOTE | 2020-05-09 14:44 | NUR ---
CALLED DR PETTY FOR NIA FORBES
--- NOTE | 2020-05-09 14:51 | MORECARE ---
CASE MANAGEMENT DISCHARGE SUMMARY PATIENT: PHUONG MAE UNIT: [id number] ADM DATE: 05/03/20 AGE: 59 : 64 SEX: M ROOM/BED: D.2227 AUTHOR: ROSANA,DOC PHYSICIAN: REFERRING PHYSICIAN: MILAD HERNANDEZ MD DATE OF SERVICE: 05/09/20 Discharge Plan Patient Name: PHUONG MAE [facility]: [facility]:[place] : 1960 Planned Disposition: Home with Home Health and Infusion Serv Anticipated Discharge Date: Discharge Date: Expected LOS: Initial Reviewer: [email or web address] Initial Review Date: 05/09/2020 Generated: 05/09/20 3:50 pm Comments DCP- Discharge Planning Updated by [email or web address]: Cathy Quiroz on 05/09/20 1:[address] Patient Name: PHUONG MAE Admission Status: Elective Accout number: [id number] Admission Date: 05-03-2020 : 1960 Admission Diagnosis:INFECT/INFLM REACTION DUE TO INTERNAL LEFT HIP PROSTH, Attending: CARYN Current LOS: 6 Anticipated DC Date: Planned Disposition: Home with Home Health and Infusion Serv Primary Insurance: MEDICARE A & B Discharge Planning Comments: CM met with patient at bedside after explaining CM role and obtaining verbal consent. CM discussed availability / needs of home health, REHAB and medical equipment. PATIENT WOULD LIKE TO RESUME HH WITH [facility] AND [facility] FOR IV [facility]. [facility]. BILL SIGNED. ANTICIPATE DC FOR FRIDAY. PATIENT ALSO HAS A WOUND VAC ON. CM TO FOLLOW AND ASSIST. Straight Cutter Machine: Cathy Quiroz DCPIA - Discharge Planning Initial Assessment Updated by [email or web address]: Cathy Quiroz on 05/09/20 2:25 pm * Is the patient Alert and Oriented? Yes * PCP LISSY * Pharmacy [facility] * Preadmission Environment Home with Family * ADLs Independent * Other Equipment WALKER * Community resources currently utilized Home Health * Please name any agencies selected above. [facility] * Additional services required to return to the preadmission environment? Yes * Can the patient safely return to the preadmission environment? Yes * Has this patient been hospitalized within the prior 30 days at any hospital? Yes External Providers [facility] Next Contact Date: Service Request Date: Service Type: Resolution: Reviewer: Comments: External Provider: [facility] Next Contact Date: Service Request Date: Service Type: Resolution: Reviewer: Comments: External Provider: [facility] Next Contact Date: Service Request Date: Service Type: Resolution: Reviewer: Comments: Coverage Notice Reviewer: [email or web address] Mary Quiroz Notice Issued Date-Time: 05/09/2020 14:38 Notice Type: Patient Choice Letter Notice Delivered To: Relationship to Patient: Device Test Engineer Name: Delivery Method: HAND - Hand Delivered Rani Days: Prior Verbal Notification: Recipient Understood Notice: Yes Recipient Signature: Yes Med Rec Note Co-signed by Attending: Coverage Notice Comment: [facility]UME [facility], [facility], [facility] Last DP export: 05/09/20 1:32 p Patient Name: PHUONG MAE Page 66537 at 1451 All edits/amendments must be made on the electronic document DICTATION DATE: 05/09/20 145 DIVING JUDGE: NICOL 05/09/20 1450 RPT#: [id number] DC DATE: STATUS: ADM IN [facility] [address] [place] [address] END OF REPORT
[2020-05-09 15:03] LABS: WBC 10.3 10x3/uL (4.8-10.8)
[2020-05-09 16:10] LABS: AEROBE ID Final report (())
[2020-05-09 18:24] VITALS: BP 104/62
[2020-05-09 20:00] VITALS: BP 90/48
[2020-05-10] VITALS (7 sets, daily range): BP systolic 90–128; BP diastolic 43–76
[2020-05-10 06:36] LABS: BASOPHILS 0.1 % (0-2); EOSINOPHILS 4.4 % (0-7); HEMATOCRIT 25.5 % (42.0-54.0); IMMATURE GRANULOCYTES 0.3 % (0-5); LYMPHOCYTES 34.4 % (15-50); MCH 26.2 pg (26.0-34.0); MCHC 31.4 g/dL (31.0-37.0); MCV 83.6 fL (80.0-100.0); NEUTROPHILS 47.8 % (40-80); PLATELET COUNT 461 10x3/uL (130-400); RBC 3.05 10x6/uL (4.20-6.10); RDW 16.3 % (11.5-14.5)
[2020-05-10 06:55] LABS: ALBUMIN 2.6 g/dL (3.4-5.0); ANION GAP 10.8 mmol/L (8-16); BILIRUBIN - TOTAL 0.21 mg/dL (0.2-1.3); CALCIUM 9.4 mg/dL (8.5-10.1); CARBON DIOXIDE 28.2 mmol/L (21.0-32.0); CREATININE - SERUM 1.5 mg/dL (0.6-1.3); PROTEIN - SERUM 7.8 g/dL (6.4-8.2)
--- NOTE | 2020-05-10 08:43 | OP ---
PATIENT NAME: PHUONG MAE MEDICAL RECORD: [id number] :[birth year] LOCATION:D.MS [id number] ADMISSION DATE:05/03/20 SURGEON: MILAD HERNANDEZ MD DATE OF OPERATION: 05/05/2020 PREOPERATIVE DIAGNOSES: 1. Left hip wound dehiscence, status post total hip arthroplasty. 2. Infected left total hip arthroplasty. POSTOPERATIVE DIAGNOSES: 1. Left hip wound dehiscence, status post total hip arthroplasty. 2. Infected left total hip arthroplasty. PROCEDURE PERFORMED: 1. Irrigation and debridement of left hips (skin, subcutaneous tissue, muscle, bone). 2. Application of wound VAC, left hip (greater than 50 cm-squared). INDICATIONS FOR THE PROCEDURE: Mr. Mae is a 59-year-old male who is 2 weeks status post left total hip arthroplasty. He was noted to have wound dehiscence of the proximal incision and was taken to the operating room earlier this week for I&D, at which point where he was found to have a deep hematoma and fatty necrosis of the superficial tissues. Cultures were obtained that have been positive for gram-positive cocci. He has been on IV vancomycin and Zosyn, returns today for repeat I&D with VAC change versus wound closure and possible hip revision. Risks, benefits and alternatives of surgery were discussed with the patient and consent was obtained. DESCRIPTION OF PROCEDURE: The patient was met in the holding area where his identity and confirmation of the procedure was performed. Left lower extremity was marked. He was taken to the operating room where he was placed supine on the operating table. Anesthesia was administered. He was positioned on the [place] table. Extremities were positioned and padded appropriately. Left lower extremity was prepped and draped in a sterile fashion. The patient was on scheduled antibiotics; therefore, did not receive any immediately preop. A timeout was performed before initiating the case. On initiation of the case, the wound was explored and there tissues appeared to be mostly clean. There were a few areas of tissue necrosis, but no evidence of purulence or deep fluid collection. It was decided to proceed with I&D of the hip for today and then revision and closure at the next surgery. Thorough I&D of the tissues was performed with 6 liters of saline. Scalpel and scissors was used to debride the areas of tissue necrosis around the incision and along the fatty tissue laterally. The deep tissues appeared to be clean. Iodine bath was also performed to the hip. After thorough I&D a wound VAC was placed to a wound measuring 14 x 4.5 cm. The compression was confirmed in the operating room and this completed our procedure. The patient was turned back over to anesthesia where he was awakened, extubated, and taken to recovery room in stable condition. POSTOPERATIVE PLAN: The patient is going to return to the floor for continued postoperative care. We will continue his IV antibiotics and plan for return to the operating room on Friday for final revision surgery and wound closure. ANESTHESIA: General. OPERATIVE REPORT [id number] PHUONG MAE COMPLICATIONS: None. ESTIMATED BLOOD LOSS: 50 mL. TRANSINT:[id number] Voice Confirmation ID: [id number] DOCUMENT ID: [id number] MILAD HERNANDEZ MD at 0843 CC: [id number] DICTATION DATE: 05/05/20 1424 PROPERTY MANAGEMENT BOOKKEEPER: 05/05/20 2304 ADM IN [place] [address] [place] [address]
--- NOTE | 2020-05-10 08:43 | OP ---
PATIENT NAME: PHUONG MAE MEDICAL RECORD: [id number] :64 LOCATION:D.MS Azul2227 ADMISSION DATE:05/03/20 SURGEON: MILAD HERNANDEZ MD DATE OF OPERATION: 05/03/2020 PREOPERATIVE DIAGNOSIS: Left hip wound dehiscence, status post total hip arthroplasty. POSTOPERATIVE DIAGNOSES: 1. Left hip wound dehiscence, status post total hip arthroplasty. 2. Infected left total hip arthroplasty. INDICATIONS FOR THE PROCEDURE: Mr. Mae is 2 weeks status post left total hip arthroplasty. He was seen in clinic last week, noted to have a dehiscence of the proximal surgical wound with moderate amount of serosanguineous drainage. Arrangements made for him to come to the operating room today for I&D of the hip with possible component exchange. Inflammatory labs were completed and his white blood cell count was normal, but both his sed rate and CRP was high. There was concern for possible hip infection. Risks, benefits and alternatives of surgery were discussed with the patient including but not limited to pain, infection, bleeding, damage to surrounding structures or potential need for further surgery. All questions were answered and consent was obtained preoperatively. DESCRIPTION OF THE PROCEDURE: The patient was met in the holding area where his identity and confirmation of procedure was performed. Left lower extremity was marked. He was taken to the operating room where he was placed supine on the operating table and anesthesia was administered. He was then positioned on the [place] table. Extremities were positioned and padded appropriately. Left lower extremity was prepped and draped in a sterile fashion. The patient received preoperative antibiotics and timeout was performed before initiating the case. On initiation of the case, the necrotic tissue at the surface of the wound was debrided and the wound was then explored. There was noted to be a hole in the tensor fascia distally with the large hematoma/seroma extending into the hip joint. There was also induration of the fatty tissues at the lateral hip with fatty necrosis of these tissues superficial to the tensor. Wound was irrigated thoroughly with 6 liters of saline. The fatty tissue from the lateral thigh and hematoma from around the hip was also debrided. Iodine wash was performed. Cultures were obtained upon entering the hematoma/seroma and these will be sent for aerobic and anaerobic as well as Gram stain. Once thorough debridement was performed, a wound VAC was placed to the wound measuring 14 x 5 cm. Wound VAC was noted to have good compression. The patient was turned back over to anesthesia. He is awakened, extubated, and taken to recovery room in stable condition. POSTOPERATIVE PLAN: The patient is going to be admitted for postoperative care. He can be weightbearing as tolerated on the left leg. We are going to start him on prophylactic vancomycin and Zosyn and follow culture results. Planned to return to the operating room in 2 days for a repeat I&D of the hip with possible wound closure. We will also perform component exchange once we are prepared to close the wound fully. ANESTHESIA: General. ESTIMATED BLOOD LOSS: 100 mL. OPERATIVE REPORT [id number] PHUONG MAE COMPLICATIONS: None. TRANSINT:[id number] Voice Confirmation ID: [id number] DOCUMENT ID: [id number] MILAD HERNANDEZ MD at 0843 CC: [id number] DICTATION DATE: 05/03/20 1256 DEMO COORDINATOR: 05/03/20 191 ADM IN [facility] [address] [place] [address]
--- NOTE | 2020-05-10 08:43 | OP ---
PATIENT NAME: PHUONG MAE MEDICAL RECORD: [id number] :[birth year] LOCATION:D.MS Azul2227 ADMISSION DATE:05/03/20 SURGEON: MILAD HERNANDEZ MD DATE OF OPERATION: 05/08/2020 PREOPERATIVE DIAGNOSES: 1. Left hip wound dehiscence status post total hip arthroplasty. 2. Infected left total hip arthroplasty. POSTOPERATIVE DIAGNOSES: 1. Left hip wound dehiscence status post total hip arthroplasty. 2. Infected left total hip arthroplasty. PROCEDURE PERFORMED: 1. I&D left hip (skin, subcutaneous tissue, muscle, bone). 2. Left total hip revision (head and polyethylene liner). 3. Closure of complex left hip wound (20 cm). 4. Application of incisional wound VAC (less than 50 cm-squared). INDICATIONS FOR THE PROCEDURE: Mr. Mae is a 59-year-old male who is 3 weeks status post left total hip arthroplasty. He developed wound dehiscence, was found to have a deep hip infection as well. We performed multiple I&Ds and cultures have been positive for enterococcus and gram-positive tamiko yet to be identified. The wound appears clean and improved. We returned today for final I&D with exchange of components and wound closure. Risks, benefits, alternatives of surgery were discussed with the patient and consent was obtained. DESCRIPTION OF PROCEDURE: The patient was met in the holding area where his identity and confirmation of procedure was performed. Left lower extremity was marked. He was taken to the operating room where he was placed supine on the operating table. Anesthesia was administered. Extremities were then positioned on the [place] table, these were padded and positioned appropriately. Left lower extremity was prepped and draped in a sterile fashion. The patient is on scheduled antibiotics; therefore, did not receive any immediately preop. A timeout was performed before initiating the case. On initiation of the case, thorough I&D of the hip was performed. The wound appeared clean without any necrotic tissue. We then placed retractors around the acetabulum and the hip was dislocated. A hook was then placed under the proximal femur. The leg was taken into extension and adduction. The proximal femur was elevated and tamp was used to remove the femoral head. The leg was then repositioned in the neutral position and retractors were again placed around the acetabulum. The tissue from around the edges of the acetabulum was debrided. The liner was then removed using a drill and screw technique without any complication. The wound was again irrigated thoroughly with saline. A Fuchs solution was then used to clean the components and soft tissues. It was then washed following the application of the solution. Retractors were repositioned around the acetabulum and our components were then replaced and the liner was placed and tapped into position. It was noted to have good fit. We then repositioned the leg in extension and adduction and the hook was used to elevate the proximal femur. Our ceramic head was then tapped into place. The hip was again repositioned and reduced without difficulty. Wound was irrigated thoroughly with saline. Wound closure was then performed to wound measuring 20 cm. The deep tissues were closed with 0 PDS suture. Subcutaneous tissue was closed with 2-0 PDS and the skin was closed with a 3-0 nylon suture. Incisional wound VAC was then placed, OPERATIVE REPORT [id number] PHUONG MAE noted to have good compression in the operating room and this completed our procedure. The patient was turned back over to anesthesia where he was awakened, extubated, and taken to recovery room in stable condition. POSTOPERATIVE PLAN: The patient is going to return to the floor for continued postoperative care. We will continue his antibiotics and resume his DVT prophylaxis. Physical therapy will be consulted to assist with mobilization. Once we have the final identification of his bacteria, then we will be able to discharge him home on IV antibiotics for a total of 6 weeks. ANESTHESIA: General. COMPLICATIONS: None. ESTIMATED BLOOD LOSS: 200 mL. TRANSINT:[id number] Voice Confirmation ID: [id number] DOCUMENT ID: [id number] MILAD HERNANDEZ MD at 0843 CC: [id number] DICTATION DATE: 05/08/20 1844 CASH MANAGEMENT SPECIALIST: 05/09/20 0332 ADM IN [facility] [address] [place] [address]
--- NOTE | 2020-05-10 15:12 | NUR ---
I have reviewed this patient and I concur with the Shift Assessment completed by the Licensed Practical Nurse today this shift.
--- NOTE | 2020-05-11 02:26 | NUR ---
PATIENT IS ALERT AND ORENTED X4 ABLE TO VOICE NEEEDS AND WANTS TO STAFF. IV IN PLACE AND PATEN TO RIGHT HAND. DRESSING CLEAN DRY AND INTACT TO LEFT HIP WOUNDVAC IN PLACE AND WORKING. TELEMETRY PLACED PER ORDER. ON ROOM AIR. INCENTIVE SPIROMETER IN PLACE AT BEDSIDE. WATER AND CALL LIGHT IN REACH BED LOW NO S/S OF DISTRESS NO NEEDS AT THIS TIME.
[2020-05-11 04:00] VITALS: BP 111/68
[2020-05-11 06:06] LABS: BASOPHILS 0.2 % (0-2); EOSINOPHILS 4.2 % (0-7); HEMATOCRIT 25.8 % (42.0-54.0); HEMOGLOBIN 8.3 g/dL (13.5-17.5); IMMATURE GRANULOCYTES 0.6 % (0-5); MCH 26.6 pg (26.0-34.0); MCHC 32.2 g/dL (31.0-37.0); MCV 82.7 fL (80.0-100.0); MONOCYTES 11.5 % (2-11); NEUTROPHILS 52.5 % (40-80); PLATELET COUNT 482 10x3/uL (130-400); RBC 3.12 10x6/uL (4.20-6.10); RDW 16.5 % (11.5-14.5)
[2020-05-11 06:37] LABS: ALBUMIN 2.7 g/dL (3.4-5.0); ANION GAP 13.3 mmol/L (8-16); BILIRUBIN - TOTAL 0.28 mg/dL (0.2-1.3); CALCIUM 9.7 mg/dL (8.5-10.1); CARBON DIOXIDE 26.7 mmol/L (21.0-32.0); CREATININE - SERUM 1.3 mg/dL (0.6-1.3); PROTEIN - SERUM 8.3 g/dL (6.4-8.2)
[2020-05-11 08:51] VITALS: BP 100/55
[2020-05-11 11:59] VITALS: BP 96/51
--- NOTE | 2020-05-11 12:09 | NUR ---
CALLED AND LEFT 2 MESSAGES THIS MORNING FOR VASCULAR ACCESS NURSE TO RETURN CALL. ADMINISTERED PRN PAIN MEDICATION PER PT REQUEST, NO OTHER NEEDS AT THIS TIME. CONTINUE WITH PLAN OF CARE
--- NOTE | 2020-05-11 14:05 | NUR ---
PATIENT ON IV ABX, AWAITING PICC, RESITED PT IV TO RT AC TO START ABX TODAY UNTIL PT CAN GET PICC PLACED. NO OTHER NEEDS AT TIS TIME. CONTINUE WITH PLAN OF CARE
[2020-05-11 16:23] VITALS: BP 116/67
--- NOTE | 2020-05-11 18:45 | NUR ---
I have reviewed this patient and I concur with the Shift Assessment completed by the Licensed Practical Nurse today this shift.
[2020-05-11 20:00] VITALS: BP 106/61
[2020-05-12] VITALS: BP 100/60
--- NOTE | 2020-05-12 03:11 | NUR ---
I have reviewed this patient and I concur with the Shift Assessment completed by the Licensed Practical Nurse today this shift.
[2020-05-12 05:59] LABS: BASOPHILS 0.2 % (0-2); EOSINOPHILS 2.9 % (0-7); HEMATOCRIT 24.9 % (42.0-54.0); IMMATURE GRANULOCYTES 0.5 % (0-5); LYMPHOCYTES 28.6 % (15-50); MCH 26.5 pg (26.0-34.0); MCHC 32.1 g/dL (31.0-37.0); MCV 82.5 fL (80.0-100.0); MEAN PLATELET VOLUME 9.7 fL (7.4-10.4); MONOCYTES 8.3 % (2-11); NEUTROPHILS 59.5 % (40-80); PLATELET COUNT 469 10x3/uL (130-400); RBC 3.02 10x6/uL (4.20-6.10); RDW 16.5 % (11.5-14.5); WBC 8.8 10x3/uL (4.8-10.8)
[2020-05-12 06:29] LABS: ALBUMIN 2.5 g/dL (3.4-5.0); ANION GAP 14.5 mmol/L (8-16); BILIRUBIN - TOTAL 0.24 mg/dL (0.2-1.3); CALCIUM 9.3 mg/dL (8.5-10.1); CARBON DIOXIDE 25.6 mmol/L (21.0-32.0); CREATININE - SERUM 1.4 mg/dL (0.6-1.3); POTASSIUM - SERUM 4.1 mmol/L (3.5-5.1)
--- NOTE | 2020-05-12 07:15 | NUR ---
RECEIVED BEDSIDE REPORT. PT SITTING UP IN BED A&O X4. DENIES PAIN. PIV TO R AC, PATENT S/L, NO REDNESS OR SWELLING. WOUND VAC TO LEFT HIP, PATENT AND DRAINING. TELEMETRY IN PLACE, 86 SR. PT ABLE TO AMBULATE WITH MIN ONE PERSON ASSIST. EDUCATED PT ON PICC PLACEMENT TODAY, CL AND NEEDS, PT VERBALIZED UNDERSTANDING. BED LOW, CL IN REACH. WILL CONTINUE TO MONITOR.
[2020-05-12 08:49] VITALS: BP 112/75
--- NOTE | 2020-05-12 10:15 | NUR ---
PT SIGNED CONSENT FOR PICC PLACEMENT, DENIES NEED FOR FURTHER INFORMATION. WILL CONTINUE TO MONITOR.
--- NOTE | 2020-05-12 11:00 | NUR ---
ASSISTED PT TO CHAIR, CHANGED GOWN AND FULL LININS. DENIES FURTHER NEEDS.
[2020-05-12 12:39] VITALS: BP 101/55
[2020-05-12] MEDS ORDERED: NORCO 7.5-3251 EACH PO (13:31)
--- NOTE | 2020-05-12 14:09 | MORECARE ---
CASE MANAGEMENT DISCHARGE SUMMARY PATIENT: PHUONG MAE UNIT: [id number] ADM DATE: 05/03/20 AGE: 59 : 64 SEX: M ROOM/BED: D.2227 AUTHOR: ROSANA,DOC PHYSICIAN: REFERRING PHYSICIAN: MILAD HERNANDEZ MD DATE OF SERVICE: 05/12/20 Discharge Plan Patient Name: PHUONG MAE Facility: [facility]:[place] : 1960 Planned Disposition: Home with Home Health and Infusion Serv Anticipated Discharge Date: Discharge Date: Expected LOS: Initial Reviewer: [email or web address] Initial Review Date: 05/09/2020 Generated: 05/12/20 3:08 pm Comments DCP- Discharge Planning Updated by [id number]: Cathy Quiroz on 05/12/20 1:[address] Patient Name: PHUONG MAE Admission Status: Elective Accout number: [id number] Admission Date: 05-03-2020 : 1960 Admission Diagnosis:INFECT/INFLM REACTION DUE TO INTERNAL LEFT HIP PROSTH, Attending: CARYN Current LOS: 9 Anticipated DC Date: Planned Disposition: Home with Home Health and Infusion Serv Primary Insurance: MEDICARE A & B Discharge Planning Comments: [facility] WILL BE OUT TODAY TO DELIVER MEDS AND DO TEACHING. ANTICIPATE DC TO HOME TODAY AFTER DR. HERNANDEZ SEES HIM. PATIENT WILL RESUME [facility] AND HAVE [facility] FOR IV INFUSIONS. CM TO FOLLOW AND ASSIST NEEDED. Guitar Instructor: Cathy Quiroz DCP- Discharge Planning Updated by [id number]: Cathy Quiroz on 05/09/20 1:[address] Patient Name: PHUONG MAE Admission Status: Elective Accout number: [id number] Admission Date: 05-03-2020 : 1960 Admission Diagnosis:INFECT/INFLM REACTION DUE TO INTERNAL LEFT HIP PROSTH, Attending: CARYN Current LOS: 6 Anticipated DC Date: Planned Disposition: Home with Home Health and Infusion Serv Primary Insurance: MEDICARE A & B Discharge Planning Comments: CM met with patient at bedside after explaining CM role and obtaining verbal consent. CM discussed availability / needs of home health, REHAB and medical equipment. PATIENT WOULD LIKE TO RESUME HH WITH [facility] AND USE [facility] FOR IV INFUSIONS. [facility]. BILL SIGNED. ANTICIPATE DC FOR FRIDAY. PATIENT ALSO HAS A WOUND VAC ON. CM TO FOLLOW AND ASSIST. Guitar Instructor: Cathy Quiroz DCPIA - Discharge Planning Initial Assessment Updated by [id number]: Cathy Quiroz on 05/09/20 2:25 pm * Is the patient Alert and Oriented? Yes * PCP LISSY * Pharmacy [facility] * Preadmission Environment Home with Family * ADLs Independent * Other Equipment WALKER * Community resources currently utilized Home Health * Please name any agencies selected above. [facility] * Additional services required to return to the preadmission environment? Yes * Can the patient safely return to the preadmission environment? Yes * Has this patient been hospitalized within the prior 30 days at any hospital? Yes Coverage Notice Reviewer: [id number] - Cathy Quiroz Notice Issued Date-Time: 05/09/2020 14:38 Notice Type: Patient Choice Letter Notice Delivered To: Relationship to Patient: Refrigerating Engineer Name: Delivery Method: HAND - Hand Delivered Rani Days: Prior Verbal Notification: Recipient Understood Notice: Yes Recipient Signature: Yes Med Rec Note Co-signed by Attending: Coverage Notice Comment: [facility], IV [facility]USION [facility], [facility] Last DP export: 05/09/20 1:51 p Patient Name: PHUONG MAE Page [id number] at 1409 All edits/amendments must be made on the electronic document DICTATION DATE: 05/12/201407 BIG DATA DEVELOPER: NICOL 05/12/201407 RPT#: [id number] DC DATE: STATUS: ADM IN [facility] [address] [place] [address] END OF REPORT
--- NOTE | 2020-05-12 17:21 | NUR ---
EDUCATED PT ON DISCHARGE INSTRUCTIONS, MEDICATIONS AND FOLLOW UP APPOINTMENT. ESCORTED PT TO ER EXIT VIA WHEELCHAIR, PT WAS D/C WITH EQUIPMENT.
--- NOTE | 2020-05-15 08:54 | MORECARE ---
CASE MANAGEMENT DISCHARGE SUMMARY PATIENT: PHUONG MAE UNIT: [id number] ADM DATE: 05/03/20 AGE: 59 : 64 SEX: M ROOM/BED: D.2227 AUTHOR: ROSANA,DOC PHYSICIAN: REFERRING PHYSICIAN: MILAD HERNANDEZ MD DATE OF SERVICE: 05/15/20 Discharge Plan Patient Name: PHUONG MAE Facility: [facility]:[place] : 1960 Planned Disposition: Home with Home Health and Infusion Serv Anticipated Discharge Date: Discharge Date: 05/12/2020 Expected LOS: Initial Reviewer: [id number] Initial Review Date: 05/09/2020 Generated: 05/15/20 9:54 am Comments DCP- Discharge Planning Updated by [email or web address]: Cathy Quiroz on 05/12/20 1:[address] Patient Name: PHUONG MAE Admission Status: Elective Accout number: [id number] Admission Date: 05-03-2020 : 1960 Admission Diagnosis:INFECT/INFLM REACTION DUE TO INTERNAL LEFT HIP PROSTH, Attending: CARYN Current LOS: 9 Anticipated DC Date: Planned Disposition: Home with Home Health and Infusion Serv Primary Insurance: MEDICARE A & B Discharge Planning Comments: [facility] WILL BE OUT TODAY TO DELIVER MEDS AND DO TEACHING. ANTICIPATE DC TO HOME TODAY AFTER DR. HERNANDEZ SEES HIM. PATIENT WILL RESUME [facility] AND HAVE [facility] FOR IV INFUSIONS. CM TO FOLLOW AND ASSIST NEEDED. Textile Machinery Instructor: Cathy Quiroz DCP- Discharge Planning Updated by [id number]: Cathy Quiroz on 05/09/20 1:[address] Patient Name: PHUONG MAE Admission Status: Elective Accout number: [id number] Admission Date: 05-03-2020 : 1960 Admission Diagnosis:INFECT/INFLM REACTION DUE TO INTERNAL LEFT HIP PROSTH, Attending: CARYN Current LOS: 6 Anticipated DC Date: Planned Disposition: Home with Home Health and Infusion Serv Primary Insurance: MEDICARE A & B Discharge Planning Comments: CM met with patient at bedside after explaining CM role and obtaining verbal consent. CM discussed availability / needs of home health, REHAB and medical equipment. PATIENT WOULD LIKE TO RESUME HH WITH [facility] AND USE [facility] FOR IV INFUSIONS. [facility]. BILL SIGNED. ANTICIPATE DC FOR FRIDAY. PATIENT ALSO HAS A WOUND VAC ON. CM TO FOLLOW AND ASSIST. Textile Machinery Instructor: Cathy Quiroz DCPIA - Discharge Planning Initial Assessment Updated by [id number]: Cathy Quiroz on 05/09/20 2:25 pm * Is the patient Alert and Oriented? Yes * PCP LISSY * Pharmacy [facility] * Preadmission Environment Home with Family * ADLs Independent * Other Equipment WALKER * Community resources currently utilized Home Health * Please name any agencies selected above. [facility] * Additional services required to return to the preadmission environment? Yes * Can the patient safely return to the preadmission environment? Yes * Has this patient been hospitalized within the prior 30 days at any hospital? Yes Coverage Notice Reviewer: [id number] Mary Quiroz Notice Issued Date-Time: 05/09/2020 14:38 Notice Type: Patient Choice Letter Notice Delivered To: Relationship to Patient: Import Specialist Name: Delivery Method: HAND - Hand Delivered Rani Days: Prior Verbal Notification: Recipient Understood Notice: Yes Recipient Signature: Yes Med Rec Note Co-signed by Attending: Coverage Notice Comment: [facility], [facility], [facility] Reviewer: [email or web address] Mary Quiroz Notice Issued Date-Time: 05/12/2020 15:25 Notice Type: IM Discharge Notice Notice Delivered To: Patient Relationship to Patient: Import Specialist Name: Delivery Method: HAND - Hand Delivered Rani Days: Prior Verbal Notification: Recipient Understood Notice: Yes Recipient Signature: Yes Med Rec Note Co-signed by Attending: Coverage Notice Comment: Last DP export: 05/12/20 1:09 p Patient Name: PHUONG MAE Page [phone] at 0854 All edits/amendments must be made on the electronic document DICTATION DATE: 05/15/20 0854 SIDE FRAMER: NICOL 05/15/20 0854 RPT#: [id number] DC DATE:05/12/20 STATUS: DIS IN [facility] [address] [place] [address] END OF REPORT
== END 2020-05-12 17:22 | disposition home health service (06) | DRG 464 ==
LOC: D.MS 06:44 → D.OPS 06:44 → D.MS 13:18 → D.OPS 17:32 → D.MS 17:33
PROVIDERS: Anesthesiology; Family Medicine; ADMIT Orthopaedic Surgery; ATTEND Orthopaedic Surgery
PROC: 2W1PX6Z Compression of Left Upper Leg using Pressure Dressing (ICD-10-PCS; 2020-05-03)
PROC: 0JBM0ZZ Excision of Left Upper Leg Subcutaneous Tissue and Fascia, Open Approach (ICD-10-PCS; principal; 2020-05-03 08:45)
PROC: 0JBM0ZZ Excision of Left Upper Leg Subcutaneous Tissue and Fascia, Open Approach (ICD-10-PCS; 2020-05-05)
PROC: 2W1PX6Z Compression of Left Upper Leg using Pressure Dressing (ICD-10-PCS; 2020-05-05)
PROC: 0SPB09Z Removal of Liner from Left Hip Joint, Open Approach (ICD-10-PCS; 2020-05-08 12:00)
PROC: 0SUE09Z Supplement Left Hip Joint, Acetabular Surface with Liner, Open Approach (ICD-10-PCS; 2020-05-08 12:00)
PROC: 05HY33Z Insertion of Infusion Device into Upper Vein, Percutaneous Approach (ICD-10-PCS; 2020-05-12)
DX: T84.52XA Infection and inflammatory reaction due to internal left hip prosthesis, initial encounter (principal); T81.30XA Disruption of wound, unspecified, initial encounter; E11.65 Type 2 diabetes mellitus with hyperglycemia; I10 Essential (primary) hypertension; D64.9 Anemia, unspecified; D47.3 Essential (hemorrhagic) thrombocythemia; M16.12 Unilateral primary osteoarthritis, left hip; F17.200 Nicotine dependence, unspecified, uncomplicated

== ENCOUNTER → 2020-05-16 13:06 | Outpatient (CLI) | payer MEDICARE ==
[2020-05-04 13:57] VITALS: BMI 41.8
[~2020-05-16 13:06] MED LIST changes: +NORCO 7.5-3251 EACH PO
== END | disposition home or self-care (01) ==
LOC: D.LABREF 13:06
PROVIDERS: ATTEND Orthopaedic Surgery
DX: Z47.1 Aftercare following joint replacement surgery (principal); Z96.642 Presence of left artificial hip joint; Z79.01 Long term (current) use of anticoagulants; K73.9 Chronic hepatitis, unspecified

== ENCOUNTER → 2020-05-16 18:56 | Outpatient (CLI) | payer MEDICARE ==
[2020-05-04 13:57] VITALS: BMI 41.8
[2020-05-16 19:19] LABS: BASOPHILS 0.2 % (0-2); HEMATOCRIT 23.9 % (42.0-54.0); IMMATURE GRANULOCYTES 0.5 % (0-5); LYMPHOCYTES 28.2 % (15-50); MCH 26.2 pg (26.0-34.0); MCHC 31.4 g/dL (31.0-37.0); MCV 83.6 fL (80.0-100.0); MEAN PLATELET VOLUME 9.1 fL (7.4-10.4); MONOCYTES 6.6 % (2-11); NEUTROPHILS 61.5 % (40-80); RBC 2.86 10x6/uL (4.20-6.10); RDW 16.6 % (11.5-14.5); WBC 8.5 10x3/uL (4.8-10.8)
[2020-05-16 19:25] LABS: HEMOGLOBIN 7.5 g/dL (13.5-17.5); PLATELET COUNT 577 10x3/uL (130-400)
[2020-05-16 19:47] LABS: ALBUMIN 2.7 g/dL (3.4-5.0); BILIRUBIN - DIRECT 0.14 mg/dL (0.00-0.30); BILIRUBIN - INDIRECT 0.04 mg/dL (0.00-1.00); BILIRUBIN - TOTAL 0.18 mg/dL (0.2-1.3); CREATININE - SERUM 1.5 mg/dL (0.6-1.3); PROTEIN - SERUM 7.7 g/dL (6.4-8.2)
== END | disposition home or self-care (01) ==
LOC: D.LABREF 18:56
PROVIDERS: ATTEND Orthopaedic Surgery
DX: Z47.1 Aftercare following joint replacement surgery (principal); Z96.642 Presence of left artificial hip joint; Z79.01 Long term (current) use of anticoagulants; K73.9 Chronic hepatitis, unspecified

== ENCOUNTER → 2020-05-19 17:51 | Outpatient (CLI) | payer MEDICARE ==
[2020-05-04 13:57] VITALS: BMI 41.8
== END | disposition home or self-care (01) ==
LOC: D.LAB 17:51
PROVIDERS: ATTEND Orthopaedic Surgery
DX: T84.52XA Infection and inflammatory reaction due to internal left hip prosthesis, initial encounter (principal)

== ENCOUNTER → 2020-05-23 23:14 | Outpatient (CLI) | payer MEDICARE ==
[2020-05-04 13:57] VITALS: BMI 41.8
[2020-05-23 23:40] LABS: ALBUMIN 2.6 g/dL (3.4-5.0); BILIRUBIN - DIRECT 0.04 mg/dL (0.00-0.30); BILIRUBIN - INDIRECT 0.06 mg/dL (0.00-1.00); BILIRUBIN - TOTAL 0.1 mg/dL (0.2-1.3); CREATININE - SERUM 1.4 mg/dL (0.6-1.3); PROTEIN - SERUM 7.9 g/dL (6.4-8.2)
[2020-05-24 00:16] LABS: BASOPHILS 0.3 % (0-2); HEMATOCRIT 22.6 % (42.0-54.0); IMMATURE GRANULOCYTES 0.2 % (0-5); MCH 25.6 pg (26.0-34.0); MCV 82.8 fL (80.0-100.0); MEAN PLATELET VOLUME 8.8 fL (7.4-10.4); MONOCYTES 10.2 % (2-11); NEUTROPHILS 45.3 % (40-80); PLATELET COUNT 606 10x3/uL (130-400); RBC 2.73 10x6/uL (4.20-6.10); RDW 17.5 % (11.5-14.5); WBC 5.8 10x3/uL (4.8-10.8)
== END | disposition home or self-care (01) ==
LOC: D.LABREF 23:14
PROVIDERS: ATTEND Orthopaedic Surgery
DX: Z47.1 Aftercare following joint replacement surgery (principal)

== ENCOUNTER → 2020-05-29 21:45 | Outpatient (CLI) | payer MEDICARE ==
[2020-05-04 13:57] VITALS: BMI 41.8
[2020-05-29 22:49] LABS: BASOPHILS 0.3 % (0-2); HEMATOCRIT 28.2 % (42.0-54.0); HEMOGLOBIN 8.7 g/dL (13.5-17.5); IMMATURE GRANULOCYTES 0.2 % (0-5); LYMPHOCYTES 37.7 % (15-50); MCH 25.2 pg (26.0-34.0); MCHC 30.9 g/dL (31.0-37.0); MCV 81.7 fL (80.0-100.0); MEAN PLATELET VOLUME 9.2 fL (7.4-10.4); MONOCYTES 7.1 % (2-11); NEUTROPHILS 49.7 % (40-80); PLATELET COUNT 653 10x3/uL (130-400); RBC 3.45 10x6/uL (4.20-6.10); RDW 17.5 % (11.5-14.5); WBC 6.7 10x3/uL (4.8-10.8)
[2020-05-29 23:04] LABS: ALBUMIN 3.3 g/dL (3.4-5.0); ANION GAP 14.7 mmol/L (8-16); BILIRUBIN - TOTAL 0.23 mg/dL (0.2-1.3); C-REACTIVE PROTEIN 0.8 mg/dL (0.0-0.9); CALCIUM 9.2 mg/dL (8.5-10.1); CREATININE - SERUM 1.3 mg/dL (0.6-1.3); POTASSIUM - SERUM 4.7 mmol/L (3.5-5.1); PROTEIN - SERUM 8.6 g/dL (6.4-8.2)
[2020-05-29 23:59] LABS: ERYTHROCYTE SEDIMENTATION RATE 112 mm/hr (0-20)
== END | disposition home or self-care (01) ==
LOC: D.LABREF 21:45
PROVIDERS: ATTEND Orthopaedic Surgery
DX: T84.52XA Infection and inflammatory reaction due to internal left hip prosthesis, initial encounter (principal)

== ENCOUNTER → 2020-06-06 16:53 | Outpatient (CLI) | payer MEDICARE ==
[2020-05-04 13:57] VITALS: BMI 41.8
[2020-06-06 17:22] LABS: BASOPHILS 0.1 % (0-2); EOSINOPHILS 3.9 % (0-7); HEMATOCRIT 28.5 % (42.0-54.0); HEMOGLOBIN 8.8 g/dL (13.5-17.5); IMMATURE GRANULOCYTES 0.2 % (0-5); LYMPHOCYTES 34.8 % (15-50); MCH 24.8 pg (26.0-34.0); MCHC 30.9 g/dL (31.0-37.0); MCV 80.3 fL (80.0-100.0); MEAN PLATELET VOLUME 9.4 fL (7.4-10.4); MONOCYTES 6.6 % (2-11); NEUTROPHILS 54.4 % (40-80); RBC 3.55 10x6/uL (4.20-6.10); RDW 18.5 % (11.5-14.5); WBC 8.8 10x3/uL (4.8-10.8)
[2020-06-06 17:24] LABS: PLATELET COUNT 417 10x3/uL (130-400)
[2020-06-06 17:36] LABS: BILIRUBIN - INDIRECT 0.12 mg/dL (0.00-1.00); BILIRUBIN - TOTAL 0.16 mg/dL (0.2-1.3); CREATININE - SERUM 1.2 mg/dL (0.6-1.3); PROTEIN - SERUM 8.4 g/dL (6.4-8.2)
[2020-06-06 17:37] LABS: BILIRUBIN - DIRECT 0.04 mg/dL (0.00-0.30)
== END | disposition home or self-care (01) ==
LOC: D.LAB 16:53
PROVIDERS: ATTEND Orthopaedic Surgery
DX: Z47.1 Aftercare following joint replacement surgery (principal)

== ENCOUNTER → 2020-06-13 19:23 | Outpatient (CLI) | payer MEDICARE ==
[2020-05-04 13:57] VITALS: BMI 41.8
[2020-06-13 21:05] LABS: BASOPHILS 0.3 % (0-2); EOSINOPHILS 5.2 % (0-7); HEMATOCRIT 30.1 % (42.0-54.0); HEMOGLOBIN 9.8 g/dL (13.5-17.5); LYMPHOCYTES 32.9 % (15-50); MCH 26.5 pg (26.0-34.0); MCHC 32.6 g/dL (31.0-37.0); MCV 81.4 fL (80.0-100.0); MEAN PLATELET VOLUME 10.5 fL (7.4-10.4); MONOCYTES 8.9 % (2-11); NEUTROPHILS 51.7 % (40-80); RDW 20.5 % (11.5-14.5); WBC 7.7 10x3/uL (4.8-10.8)
[2020-06-13 21:21] LABS: PLATELET COUNT 274 10x3/uL (130-400)
[2020-06-13 21:54] LABS: ALBUMIN 2.8 g/dL (3.4-5.0); BILIRUBIN - DIRECT 0.04 mg/dL (0.00-0.30); BILIRUBIN - INDIRECT 0.09 mg/dL (0.00-1.00); BILIRUBIN - TOTAL 0.13 mg/dL (0.2-1.3); CREATININE - SERUM 0.9 mg/dL (0.6-1.3); PROTEIN - SERUM 7.4 g/dL (6.4-8.2)
== END | disposition home or self-care (01) ==
LOC: D.LABREF 19:23
PROVIDERS: ATTEND Orthopaedic Surgery
DX: Z47.1 Aftercare following joint replacement surgery (principal); Z79.01 Long term (current) use of anticoagulants; Z73.4 Inadequate social skills, not elsewhere classified